=== PATIENT | female | born 1945 | race Caucasian/White ===

== ENCOUNTER → 2016-03-28 | Emergency (ER) | payer MEDICARE, BC ==
[~2016-03-28] VITALS: Ht 167.6 cm; Wt 72.5 kg
[~2016-03-28] MED LIST: ACETAMINOPHEN 325 MG TAB PO ONE; ASPI-664 PO; BENZ2TAB37 PO; CARB200T43 PO; CARI350T29 PO; CLON-379 PO; CLON0.2T5 PO; CLON0.5T4 PO; CLON1TAB3 PO; DILT120C79 PO; DILTIAZEM 120 MG TAB PO ONE; DILTIAZEM 60 MG TAB PO ONE; DIPHENHYDRAMINE 50 MG CAP PO ONE; DOCU-144 PO; DONE5TAB46 PO; FURO-110 PO; GLYB5TAB3 PO; HYDR-3010 PO; IVERMECTIN 3 MG TAB PO ONE; LEVEM SC; LEVO150T67 PO; LEVOTHYROXINE 150 MCG TAB PO ONE; METF-382 PO; NOVO3I SC; TOLT4CAP13 PO; TRAZ100T15 PO; VENL37.56 PO; VENL75TA2 PO
[2016-03-28 00:52] VITALS: Ht 167.6 cm; Wt 72.5 kg
--- NOTE | 2016-03-28 01:25 | ERA ---
ER Documentation Chief Complaint Date/Time DATE: 03/28/16 TIME: 01:24 Chief Complaint Suicidal ideation HPI The patient is a 70-year-old female, presenting to the ER because of suicidal ideation. She does not have any plan. She complains of insomnia, chronic low back pain, general body aches for the last couple days. She denies auditory, visual hallucination, homicidal ideation. Past medical history: Bipolar disorder, diabetes mellitus, hypertension, hypothyroidism, depression, atrial fibrillation, chronic low back pain Past surgical history: Hysterectomy, appendectomy ROS All systems reviewed and are negative except as per history of present illness. Medications Home Meds Active Scripts Docusate Sodium* (Colace*) 100 Mg Capsule, 100 MG PO BID Y for CONSTIPATION, # 30 CAP Prov:LAWSON NEAL MD 07/06/15 Reported Medications Venlafaxine Hcl* (Effexor*) 37.5 Mg Tablet, 37.5 MG PO BID, TAB 07/06/15 Insulin Detemir* (Levemir*) 100 U/Ml Vial, 75 UNIT SC BID, VIAL 07/06/15 Clonidine Hcl* (Clonidine Hcl*) 0.2 Mg Tablet, 0.2 MG PO Q8, TAB 04/27/14 Metformin Hcl* (Metformin Hcl*) 500 Mg Tablet, 500 MG PO WITH MEALS, TAB 04/27/14 Trazodone Hcl* (Trazodone Hcl*) 100 Mg Tablet, 200 MG PO HS Y for INSOMNIA, TAB 04/27/14 Aspirin* (Aspirin* EC) 81 Mg Tablet.dr, 81 MG PO DAILY, TAB 04/27/14 Levothyroxine Sodium* (Levothyroxine Sodium*) 150 Mcg Tablet, 150 MCG PO AC BREAKFAST, TAB 04/27/14 Furosemide* (Lasix*) 20 Mg Tablet, 20 MG PO DAILY Y for EDEMA, TAB 04/27/14 Clonazepam* (Clonazepam*) 1 Mg Tablet, 1 MG PO QHS, TAB 04/27/14 Clonazepam* (Clonazepam*) 0.5 Mg Tablet, 0.5 MG PO QAM, TAB 04/27/14 Carbamazepine* (Carbamazepine* XR) 200 Mg Tab.er.12h, 400 MG PO Q12, TAB.SA 04/27/14 Allergies Allergies: Coded Allergies: No Known Allergies (Verified Allergy, Mild, 12/02/15) PMhx/Soc History of Surgery: Yes (HYSTERECTOMY, APPENDECTOMY) Anesthesia Reaction: No Hx Neurological Disorder: No Hx Respiratory Disorders: No Hx Cardiac Disorders: Yes (pacemaker) Hx Psychiatric Problems: Yes (depression, bipolar) Hx Miscellaneous Medical Probl: Yes (OA, DM, DEPRESSION, BIPOLAR) Hx Alcohol Use: No Hx Substance Use: No Hx Tobacco Use: Yes Physical Exam Vitals Vital Signs Date Time Temp Pulse Resp B/P Pulse Ox O2 Delivery O2 Flow Rate FiO2 03/28/16 03:26 66 20 141/74 100 Room Air 03/28/16 02:19 98.5 78 20 124/64 Room Air 03/28/16 00:52 98.9 69 18 148/84 97 Physical Exam Const: No acute distress. Head: Atraumatic. Eyes: Normal Conjunctiva. ENT: Normal External Ears, Nose and Mouth. Neck: Full range of motion. No meningismus. Resp: Clear to auscultation bilaterally. Cardio: Regular rate and rhythm, no murmurs. Abd: Soft, non distended, normal bowel sounds, non tender. Skin: Multiple excoriation throughout the body, no vesicle, no petechia no pustules Back: No midline or flank tenderness. Ext: No cyanosis, or edema. Neur: Awake and alert. No focal deficit Psych: Normal Mood and Affect. Result Diagram: 03/28/16 02003/28/16 0200 Results 24 hrs Laboratory Tests Test 03/28/16 02:00 03/28/16 02:30 Acetaminophen Level < 10.0ug/ml Alanine Aminotransferase (ALT/SGPT) 28IU/L Albumin 4.1g/dl Albumin/Globulin Ratio 1.36 Alkaline Phosphatase 84IU/L Anion Gap 17 Aspartate Amino Transf (AST/SGOT) 30IU/L Basophils # 0.010^3/ul Basophils % 0.2% Blood Morphology Comment Blood Urea Nitrogen 23mg/dl Calcium Level 9.6mg/dl Carbon Dioxide Level 30mmol/L Chloride Level 97mmol/L Creatinine 0.84mg/dl Direct Bilirubin 0.00mg/dl Eosinophils # 0.510^3/ul Eosinophils % 8.8% Ethyl Alcohol Level < 10.0mg/dl Globulin 3.00g/dl Glucose Level 59mg/dl Hematocrit 40.3% Hemoglobin 13.3g/dl Indirect Bilirubin 0.1mg/dl Lymphocytes # 1.010^3/ul Lymphocytes % 16.5% Mean Corpuscular Hemoglobin 30.5pg Mean Corpuscular Hemoglobin Concent 33.1g/dl Mean Corpuscular Volume 92.2fl Mean Platelet Volume 8.0fl Monocytes # 0.410^3/ul Monocytes % 6.2% Neutrophils # 4.010^3/ul Neutrophils % 68.3% Nucleated Red Blood Cells # 0.010^3/ul Nucleated Red Blood Cells % 0.0/100WBC Platelet Count 01563^3/UL Potassium Level 4.3mmol/L Red Blood Count 4.3710^6/ul Red Cell Distribution Width 14.6% Salicylates Level < 1.0mg/dl Sodium Level 140mmol/L Total Bilirubin 0.1mg/dl Total Protein 7.1g/dl White Blood Count 5.810^3/ul Urine Amphetamines Screen Negative Urine Bacteria FEW Urine Barbiturates Negative Urine Benzodiazepines Screen Negative Urine Bilirubin 1+ Urine Cannabinoids Negative Urine Clarity SL HAZY Urine Cocaine Screen Negative Urine Color YELLOW Urine Glucose NEGATIVE% Urine Hemoglobin NEGATIVE Urine Ictotest NEGATIVE Urine Ketones TRACE Urine Leukocyte Esterase 1+ Urine Microscopic RBC 2-5/HPF Urine Microscopic WBC 5-10/HPF Urine Nitrite NEGATIVE Urine Opiates Screen Negative Urine Specific [place] 1.015 Urine Squamous Epithelial Cells MODERATE Urine Total Protein 1+ Urine Urobilinogen 1.0 E.U./dL Urine pH 7.0 Current Medications Medications (Trade) Dose Ordered Sig/[place] Route PRN Reason Start Time Stop Time Status Last Admin Dose Admin Ivermectin (Stromectol) 14 mg ONCE ONCE PO 03/28/16 03:30 03/28/16 03:31 DC 03/28/16 04:08 Diphenhydramine HCl (Benadryl) 50 mg ONCE ONCE PO 03/28/16 04:30 03/28/16 04:31 Procedures/[facility] The patient is a 70-year-old female, presenting with acute suicidal ideation, probable acute scabies. She was treated with Ivermectin po for scabies and Benadryl p.o. for pruritus with good response. The differential diagnoses considered include but are not limited to psychosis, decompensated psychiatric illness, cellulitis, anxiety disorder, panic disorder Departure Diagnosis: Primary Impression: Suicidal ideation Additional Impression: Scabies Condition: Stable Comments Consultation: The patient was evaluated by telepsychiatrist who put her on 5150 hold TAIWO AGRAWAL MD Mar 28, 2016 01:25
[2016-03-28 02:24] LABS: BASOPHILS % 0.2 % (0.0-2.0); EOSINOPHILS # 0.5 10^3/ul (0.0-0.5); EOSINOPHILS % 8.8 % (0.0-7.0); HEMATOCRIT 40.3 % (37.0-47.0); HEMOGLOBIN 13.3 g/dl (12.0-16.0); LYMPHOCYTES % 16.5 % (15.0-51.0); MEAN CORPUSCULAR HEMOGLOBIN 30.5 pg (29.0-33.0); MEAN CORPUSCULAR HGB CONC 33.1 g/dl (32.0-37.0); MEAN CORPUSCULAR VOLUME 92.2 fl (82.0-101.0); MONOCYTE # 0.4 10^3/ul (0.3-0.9); MONOCYTES % 6.2 % (0.0-11.0); NEUTROPHILS % 68.3 % (39.0-77.0); PLATELET COUNT 232 10^3/UL (140-440); RED BLOOD COUNT 4.37 10^6/ul (4.20-5.40); RED CELL DISTRIBUTION WIDTH 14.6 % (11.5-14.5); UNCORRECTED WBC 5.8 10^3/ul (4.8-10.8); WHITE BLOOD COUNT 5.8 10^3/ul (4.8-10.8)
[2016-03-28 02:31] LABS: CONDITION 1
[2016-03-28 02:32] LABS: LH ANALYZER COMMENTS 1
[2016-03-28 02:40] LABS: ALBUMIN 4.1 g/dl (3.3-4.9); CHLORIDE 97 mmol/L (97-110); SODIUM 140 mmol/L (135-144)
[2016-03-28 02:41] LABS: POTASSIUM 4.3 mmol/L (3.5-5.1)
[2016-03-28 02:42] LABS: BILIRUBIN,INDIRECT 0.1 mg/dl (0-1.1); BILIRUBIN,TOTAL 0.1 mg/dl (0.2-1.3); CREATININE 0.84 mg/dl (0.44-1.00)
[2016-03-28 02:43] LABS: ALANINE AMINOTRANSFERASE 28 IU/L (13-69); ALBUMIN/GLOBULIN RATIO 1.36; ALKALINE PHOSPHATASE 84 IU/L (42-121); ANION GAP 17 (8-16); ASPARTATE AMINO TRANSFERASE 30 IU/L (15-46); BLOOD UREA NITROGEN 23 mg/dl (7-20); CALCIUM 9.6 mg/dl (8.4-10.2); CARBON DIOXIDE 30 mmol/L (21-31); GLUCOSE 59 mg/dl (70-220); TOTAL PROTEIN 7.1 g/dl (6.1-8.1)
[2016-03-28 02:47] LABS: ACETAMINOPHEN < 10.0 ug/ml (10.0-30.0); ETHANOL < 10.0 mg/dl; SALICYLATE < 1.0 mg/dl (5.0-30.0)
[2016-03-28 03:32] LABS: ADD UMIC YES; URINE BILIRUBIN (Dip) 1+ (NEGATIVE); URINE BLOOD (Dip) NEGATIVE (NEGATIVE); URINE COLOR YELLOW (YELLOW); URINE GLUCOSE (Dip) NEGATIVE (NEGATIVE); URINE KETONES (Dip) TRACE (NEGATIVE); URINE LEUKOCYTE ESTERASE (Dip) 1+ (NEGATIVE); URINE NITRITE (Dip) NEGATIVE (NEGATIVE); URINE TOTAL PROTEIN (Dip) 1+ (NEGATIVE); URINE UROBILINOGEN (Dip) 1.0 E.U./dL (0.1-1.0)
[2016-03-28 03:49] LABS: ICTOTEST NEGATIVE (NEGATIVE)
[2016-03-28 03:50] LABS: BACTERIA,URINE FEW; SQUAMOUS EPITHELIAL CELL,UR MODERATE
--- NOTE | 2016-03-28 04:13 | PSY ---
Date/Time of Note Date/Time of Note DATE: 03/28/16 TIME: 04:06 Psychiatric Subjective Eval Subjective Evaluation Patient location: emergency Chief Complaint: SI,insomnia,hx bipolar,scabies,chronic back pain Reason for consult: Mental history History of present illness patient is a 70 yo female with PPH of bipolar do who lives with her daughter who was brought in to the ER by her daughter because she has been feeling suicidal. Patient states that she wants to because she has no money and her children needs to take care of her and also because of chronic pain. she states that she has been feeling depressed, hopeless and helpless for weeks but she also seem manic, with being hyperverbal, irritable, labile, paranoid at times, states that she has not slept for few days but denies any HI or hallucination. she is disorganized and confused at times. Past psychiatric history past suicidal attempt no Hospitalization: yes Family History Problems Family History Problems: (1) Family history of cardiac disorder Relations: 33 FATHER Medical history Problems Medical Problems: (1) Abdominal pain Status: Acute (2) Caffeine adverse reaction Status: Acute (3) Constipation Status: Acute (4) Diabetes mellitus type 2 in obese Status: Acute (5) Hematoma of left lower extremity Status: Acute (6) Hernia Status: Acute (7) Hyperglycemia Status: Acute (8) Hypertension Status: Acute (9) Hypoglycemia Status: Acute (10) Severe anemia Status: Acute (11) Sinus tachycardia Status: Acute (12) Ventral hernia Status: Acute (13) Warfarin-induced coagulopathy Status: Acute Allergies: Coded Allergies: No Known Allergies (Verified Allergy, Mild, 12/02/15) Substance Abuse Substance use: No known substance abuse Social History Marital status: single Level of education: High school; 2 year college DPA/Conservatorship: No Occupation/Care Home: Retired since 1995 Psychiatric Objective Eval Review of Systems: Review of Systems: Not Applicable Physical Examination: Physical Examination: Applicable Sleep: Insomnia Appetite: Decreased Energy: Decreased Interest: Decreased Mental Status Examination: Appearance: Disheveled Eye Contact: Fair Psychomotor Activity: Normal Behavior: Cooperative Speech: Pressured AFFECT: Libile Mood: Depressed, Anxious Though Process: Loose Thought Content: Delusions Suicidal: Yes Homicidal: No On 72 hour hold: No Orientation: x3 Cognition: Drowsy Insight: Impared Judgement: Impared Attention Span: Distractible Laboratory Results Laboratory Tests Test 03/28/16 02:00 03/28/16 02:30 Acetaminophen Level < 10.0ug/ml Alanine Aminotransferase (ALT/SGPT) 28IU/L Albumin 4.1g/dl Albumin/Globulin Ratio 1.36 Alkaline Phosphatase 84IU/L Anion Gap 17 Aspartate Amino Transf (AST/SGOT) 30IU/L Basophils # 0.010^3/ul Basophils % 0.2% Blood Morphology Comment Blood Urea Nitrogen 23mg/dl Calcium Level 9.6mg/dl Carbon Dioxide Level 30mmol/L Chloride Level 97mmol/L Creatinine 0.84mg/dl Direct Bilirubin 0.00mg/dl Eosinophils # 0.510^3/ul Eosinophils % 8.8% Ethyl Alcohol Level < 10.0mg/dl Globulin 3.00g/dl Glucose Level 59mg/dl Hematocrit 40.3% Hemoglobin 13.3g/dl Indirect Bilirubin 0.1mg/dl Lymphocytes # 1.010^3/ul Lymphocytes % 16.5% Mean Corpuscular Hemoglobin 30.5pg Mean Corpuscular Hemoglobin Concent 33.1g/dl Mean Corpuscular Volume 92.2fl Mean Platelet Volume 8.0fl Monocytes # 0.410^3/ul Monocytes % 6.2% Neutrophils # 4.010^3/ul Neutrophils % 68.3% Nucleated Red Blood Cells # 0.010^3/ul Nucleated Red Blood Cells % 0.0/100WBC Platelet Count 29902^3/UL Potassium Level 4.3mmol/L Red Blood Count 4.3710^6/ul Red Cell Distribution Width 14.6% Salicylates Level < 1.0mg/dl Sodium Level 140mmol/L Total Bilirubin 0.1mg/dl Total Protein 7.1g/dl White Blood Count 5.810^3/ul Urine Bacteria FEW Urine Bilirubin 1+ Urine Clarity SL HAZY Urine Color YELLOW Urine Glucose NEGATIVE% Urine Hemoglobin NEGATIVE Urine Ictotest NEGATIVE Urine Ketones TRACE Urine Leukocyte Esterase 1+ Urine Microscopic RBC 2-5/HPF Urine Microscopic WBC 5-10/HPF Urine Nitrite NEGATIVE Urine Specific [place] 1.015 Urine Squamous Epithelial Cells MODERATE Urine Total Protein 1+ Urine Urobilinogen 1.0 E.U./dL Urine pH 7.0 Assessment and Plan Assessment/Diagnosis [place] I: bipolar do mixte episode severe [place] II: deferred [place] III: as per record [place] IV: poor social support [place] V: gaf 20 Recommendation/Plan Medication Management zyprexa 2.5 mg po bid and discontinue effexor at bedtime Psychotherapy Please admit patient on unvoluntary status due to Danger to self, In my opinion, patient currently MEETS criterion for inpatient care and CANNOT be safely treated at a lower level of care today as evidenced by the following risk factors: Current and Recent Suicidal Ideation Intense feelings of hopelessness and lack of future orientation. Significant recent DETERIORATION in function, behavior and thought processes Patient has failed outpatient and requires further inpatient assessment Medication changes require observation unavailable at a lower level of care. [id number] Recommendation: DORY Gotti MD Mar 28, 2016 04:13
[2016-03-28 04:23] LABS: BARBITURATES Negative (NEGATIVE); BENZODIAZEPINES Negative (NEGATIVE); CANNABINOIDS Negative (NEGATIVE); COCAINE Negative (NEGATIVE)
[2016-03-28 04:24] LABS: OPIATES Negative (NEGATIVE)
[2016-03-28 15:00] VITALS: BP 158/87; PULSE 82; RESP 20; TEMP 98.7
== END | disposition other institution (70) ==
LOC: E/R 00:30
DX: B86 Scabies (principal); R45.851 Suicidal ideations; I10 Essential (primary) hypertension; E03.9 Hypothyroidism, unspecified; E11.9 Type 2 diabetes mellitus without complications; Z79.4 Long term (current) use of insulin; Z79.84 Long term (current) use of oral hypoglycemic drugs; Z79.82 Long term (current) use of aspirin; Z87.891 Personal history of nicotine dependence; Z95.0 Presence of cardiac pacemaker
CPT/HCPCS: 80053; 80306; 80307; 81001; 81003; 82962; 85025; 99285

== ENCOUNTER 2016-06-11 18:30 | Emergency (ER) | payer MEDICARE, BC ==
[~2016-06-11] VITALS: Ht 162.6 cm; Wt 77.5 kg
[~2016-06-11 18:30] MED LIST changes: -ACETAMINOPHEN 325 MG TAB PO ONE; -ASPI-664 PO; -CLON0.2T5 PO; -CLON0.5T4 PO; -DILTIAZEM 120 MG TAB PO ONE; -DILTIAZEM 60 MG TAB PO ONE; -DIPHENHYDRAMINE 50 MG CAP PO ONE; -DOCU-144 PO; -FURO-110 PO; -IVERMECTIN 3 MG TAB PO ONE; -LEVOTHYROXINE 150 MCG TAB PO ONE; -METF-382 PO; -TRAZ100T15 PO; -VENL37.56 PO
[2016-06-11 19:03] VITALS: Ht 162.6 cm; Wt 77.5 kg
--- NOTE | 2016-06-11 22:51 | ERD ---
ER Documentation Chief Complaint Date/Time DATE: 06/11/16 TIME: 22:36 Chief Complaint blister on right foot noticed since yesterday (ABDIRIZAK GUTIERREZ) HPI This 70-year-old female brought into emergency department today by grandson with reports of right heel blister noticed yesterday. Patient reports pain, she is quiet, appears confused, grandson reports recent diagnosis of dementia. Patient states that she is a diabetic, reports that she does not test her blood sugar. Patient has pacemaker. Recent history of COPD and CHF. Patient is afebrile at this time, systolic blood pressure is 178/78, respirations are 20. Pulse is 70. Patient does not appear septic. (ABDIRIZAK GUTIERREZ) ROS All systems reviewed and are negative except as per history of present illness. (ABDIRIZAK GUTIERREZ) Medications Home Meds Reported Medications Venlafaxine Hcl* (Effexor XR*) 75 Mg Tab.er.24, 75 MG PO DAILY, TAB.SA 03/28/16 Donepezil* (Aricept*) 5 Mg Tablet, 5 MG PO DAILY, TAB 03/28/16 Insulin Aspart* (Novolog Insulin Pen*) 100 Unit/Ml Soln, 0 SC WITH MEALS BEDTIME , EA 03/28/16 Tolterodine Tartrate* (Tolterodine Tartrate* ER) 4 Mg Cap.er.24h, 4 MG PO DAILY , #30 CAP 03/28/16 Insulin Detemir (Levemir) 100 Unit/1 Ml Vial, 12 UNIT SC QAM, VIAL 03/28/16 Carisoprodol* (Carisoprodol*) 350 Mg Tablet, 350 MG PO Q8 Y for MUSCLE SPASMS, TAB 03/28/16 Benztropine Mesylate* (Benztropine Mesylate*) 2 Mg Tablet, 2 MG PO BID, TAB 03/28/16 Clonidine Hcl* (Clonidine Hcl*) 0.1 Mg Tab, 0.1 MG PO Q4H Y for ELEVATED BLOOD PRESSURE, TAB 03/28/16 Hydroxyzine Hcl* (Hydroxyzine Hcl*) 10 Mg Tablet, 10-20 MG PO Q4 Y for ITCHING, #30 TAB 03/28/16 Glyburide* (Glyburide*) 5 Mg Tablet, 5 MG PO BID, #60 TAB 03/28/16 Diltiazem Hcl* (Diltiazem XT) 120 Mg Capsule.sa, 120 MG PO DAILY, #30 CAP 03/28/16 Levothyroxine Sodium* (Levothyroxine Sodium*) 150 Mcg Tablet, 150 MCG PO AC BREAKFAST, TAB 04/27/14 Clonazepam* (Clonazepam*) 1 Mg Tablet, 1 MG PO QHS, TAB 04/27/14 Carbamazepine* (Carbamazepine* XR) 200 Mg Tab.er.12h, 400 MG PO Q12, TAB.SA 04/27/14 Allergies Allergies: Coded Allergies: No Known Allergies (Verified Allergy, Mild, 03/28/16) PMhx/Soc History of Surgery: Yes (HYSTERECTOMY, APPENDECTOMY) Anesthesia Reaction: No Hx Neurological Disorder: No Hx Respiratory Disorders: No Hx Cardiac Disorders: Yes (pacemaker) Hx Psychiatric Problems: Yes (depression, bipolar, depression) Hx Miscellaneous Medical Probl: Yes (dm type 2, hypothyroidism) Hx Alcohol Use: No Hx Substance Use: No Hx Tobacco Use: No Smoking Status: Former smoker (ABDIRIZAK GUTIERREZ) Physical Exam Vitals Vital Signs Date Time Temp Pulse Resp B/P Pulse Ox O2 Delivery O2 Flow Rate FiO2 06/12/16 00:09 73 16 189/94 100 Room Air 06/11/16 19:03 97.8 70 20 178/78 97 (CHELSIEI,KOROSH DO) Vitals Vitals stable, triage notes reviewed (ABDIRIZAK GUTIERREZ) Physical Exam Const: No acute distress Head: Atraumatic Eyes: Normal Conjunctiva PERRLA, EOMI ENT: Normal External Ears, Nose and Mouth. Mucous membranes moist Neck: Resp: Chest rises and falls symmetrically, diminished posterior bases Cardio: Regular rate and rhythm, Abd: Soft, non tender, non distended. Normal bowel sounds Skin: Right heel decubitus ulcer, soft, spongy, black, Back: Ext: Lower Extremity - bilateral: Skin: 3 cm x 2.5 cm black spongy pressure ulcer noted on right heel, bilateral lower extremities are edematous, skin is thickened, shriveled and dry. Compartments: Soft Motor: Decreased motor function, patient slow to respond, difficulty moving toes and flex and extending ankles and knees. Sensation: Decreased sensation to bilateral feet and heels. Bones: Nontender pelvis/knee/proximal tibia/ malleoli/foot Joints: No effusion or laxity Pulses/Perfusion: Right DP/PT not palpable, feel it is cold, +2 pitting edema, left DP/PT trace. Capillary refill sluggish 2+ DP, + 2 pitting edema Neur: Neuro: M/S: Alert Face: EOMI, face and pharynx with normal sensation and function Motor: Normal strength throughout-suspected baseline Sensation: Decreased sensation suspected baseline, suspected diabetic neuropathy Speech: Slow Cerebel: Right hand tremor noted Difficulty ambulating needs assist Psych: Normal Mood and Affect (BRENDA,ABDIRIZAK) Result Diagram: 06/11/16225606/11/162256 Results 24 hrs Laboratory Tests Test 06/11/16 20:37 06/11/16 22:57 Bedside Glucose 258mg/dL White Blood Count 9.810^3/ul Red Blood Count 4.2610^6/ul Hemoglobin 13.1g/dl Hematocrit 39.7% Mean Corpuscular Volume 93.2fl Mean Corpuscular Hemoglobin 30.8pg Mean Corpuscular Hemoglobin Concent 33.0g/dl Red Cell Distribution Width 13.4% Platelet Count 11699^3/UL Mean Platelet Volume 9.2fl Neutrophils % 77.8% Lymphocytes % 12.1% Monocytes % 7.0% Eosinophils % 2.3% Basophils % 0.5% Nucleated Red Blood Cells % 0.0/100WBC Neutrophils # 7.610^3/ul Lymphocytes # 1.210^3/ul Monocytes # 0.710^3/ul Eosinophils # 0.210^3/ul Basophils # 0.110^3/ul Nucleated Red Blood Cells # 0.010^3/ul Prothrombin Time 13.1Sec Prothrombin Time Ratio 1.0 INR International Normalized Ratio 0.99 Activated Partial Thromboplast Time 28.6Sec Sodium Level 129mmol/L Potassium Level 3.5mmol/L Chloride Level 85mmol/L Carbon Dioxide Level 29mmol/L Anion Gap 19 Blood Urea Nitrogen 19mg/dl Creatinine 0.71mg/dl Glucose Level 280mg/dl Lactic Acid Level 1.3mmol/L Calcium Level 9.4mg/dl Total Bilirubin 0.4mg/dl Direct Bilirubin 0.00mg/dl Indirect Bilirubin 0.4mg/dl Aspartate Amino Transf (AST/SGOT) 23IU/L Alanine Aminotransferase (ALT/SGPT) 32IU/L Alkaline Phosphatase 165IU/L Troponin I < 0.012ng/ml Total Protein 7.4g/dl Albumin 4.1g/dl Globulin 3.30g/dl Albumin/Globulin Ratio 1.24 (MARIA FERNANDA FONG DO) Results 24 hrs Interpretation text CBC shows no evidence of hemorrhage or infection Chemistry shows no evidence of renal insufficiency, hyponatremia noted at 129. Liver function tests shows no evidence of acute biliary or hepatic dysfunction Lipase shows no evidence of acute pancreatitis Cardiac biomarkers show no evidence of acute myocardial injury or coronary ischemia (ABDIRIZAK GUTIERREZ) Procedures/MDM PROCEDURE: US Lower extremity Venous. CLINICAL INDICATION: Right lower extremity swelling TECHNIQUE: Multiple sonographic images of the right lower extremity deep venous system was obtained utilizing grayscale, color-flow, compressive sonography and doppler imaging with augmentation. The images were reviewed on a PACS workstation. COMPARISON: 11/01/2012 FINDINGS: There is normal compressibility and flow within the right common femoral, femoral, popliteal veins. Considerable tissue edema is seen in the right calf. Normal color flow Doppler seen in the right posterior tibial vein. IMPRESSION: No sonographic evidence for right lower extremity deep venous thrombosis. Considerable soft tissue edema in right calf. .Torito Lindsay MD, Date Time Electronically viewed and signed by .Torito Lindsay MD, MD on 06/12/2016 00:09 PROCEDURE: XR Heel. CLINICAL INDICATION: Pain, osteomyelitis. TECHNIQUE: Two views of the left calcaneus. COMPARISON: None available. FINDINGS: No fracture or dislocation is identified. No cortical lucency or periosteal reaction is identified to suggest osteomyelitis. No significant degenerative changes are seen. There is no soft tissue gas. IMPRESSION: 1. No evidence of osteomyelitis. 2. No soft tissue gas. .Geovany Smith MD, Date Time Electronically viewed and signed by .Geovany Smith MD, on 06/12/2016 00:15 EKG: Rate/Rhythm: Normal Sinus Rhythm QRS, ST, T-waves: ST and T-wave abnormality/prolonged QT Impression: Abnormal ECG-pacemaker spikes noted Reading by EKG: Rate/Rhythm: Normal Sinus Rhythm QRS, ST, T-waves: ST and T-wave abnormality/prolonged QT Impression: Abnormal ECG-pacemaker spikes noted Reading by This 70-year-old female presents to emergency department today for evaluation of right heel pressure ulcer, ulcers black, spongy. Patient is diabetic, with cardiovascular disease, pacemaker implantation, COPD and dementia. Poor historian, grandson in exam room concerned. Grandson reports that he has been away out of the country [place] 4 months and that his grandmother has changed dramatically. Patient has flat affect, slow mentation. Right hand tremor, differential diagnosis includes but not limited to cellulitis, osteomyelitis, deep vein thrombosis, DKA, AMI. ECG shows normal sinus rhythm at ventricular rate of [address]-T wave abnormality and a prolonged QT. ECG repeated in 20 minutes without change-pacemaker spikes noted patient has no chest pain, shortness of breath, or palpitations. Venous ultrasound to rule out DVT shows there is normal compression and flow of right common femoral and femoral popliteal veins, considerable tissue edema is seen in right calf normal color flow Doppler seen in right posterior tibial vein. No sonographic evidence for right lower extremity DVT, Right heel x-ray findings include no fracture or dislocation is identified. No cortical lunacy or periosteal region is identified to suggest osteomyelitis. No significant degenerative changes are seen. There is is no soft tissue gas. Impression reads no evidence of osteomyelitis. No soft tissue gas. Hyponatremia at 129. Case discussed with supervising physician Dr. Fong, discussed the possibility of admission. Dr. Alejandra talked to on-call primary care physician Dr. Ildefonso agarwal to discharge home no change in medication follow- up in office this week. Patient will be referred to wound clinic. I feel the patient is stable for discharge at this time. I have discussed results, examination findings, the treatment plan with the patient and family present prior to discharge. Indications for emergent reevaluation, side effects of medication were also discussed. All questions were answered. Patient verbalizes understanding and agrees with plan of care. (ABDIRIZAK GUTIERREZ) Departure Patient Instructions: Decubitus Ulcer, Hyponatremia Referrals: [facility] Additional Instructions: Thank you for for coming to [facility] for your care today. Please ask your nurse or provider if you have questions about your care today and do not leave until all your questions have been answered. Please use any medications given as directed and follow-up with your doctor (or the doctor you were referred to) in the next 2-3 days. If you do not have a primary care doctor you may follow up at the [facility] (listed below). You may also use motrin and tylenol as needed for fever and/or pain unless instructed otherwise by your provider or nurse. Indications for more urgent follow-up have been discussed, but you may return to the Emergency Department at ANY time for any worrisome or worsening symptoms. If you have abdominal pain, please know that no test or exam you received is perfect and you should follow up within 8 hours for continued pain. If you had any imaging studies today, such as an X-Ray or CT Scan, these studies will be reviewed later by a radiologist. You will be called if there are important findings that were not identified today, so make sure the contact information you provided at registration is correct. If you received any narcotic pain control medicine today, such as Vicodin, Morphine or Dilaudid, your coordination and judgment may be affected for a number of hours. Please do not drive or operate heavy machinery, and you may want someone to assist you at home. If you were given a prescription for narcotic medication, be aware that it is very addictive- use sparingly and only if necessary. Comments I have reviewed this case with our physician blacksmith assistant. I have contacted this patient's physician calculation reviewer, Dr. Fregoso. I discussed this patient's hyponatremia with her. She states that this patient can follow-up as an outpatient for lab redraw this week. (MARIA FERNANDA FONG DO) ABDIRIZAK GUTIERREZ Jun 11, 2016 22:47 MARIA FERNANDA FONG DO Jun 12, 2016 03:32
[2016-06-11 23:11] LABS: ADD SCAN DIFF NO
[2016-06-11 23:15] LABS: BASOPHIL # 0.1 10^3/ul (0.0-0.1); BASOPHILS % 0.5 % (0.0-2.0); EOSINOPHILS # 0.2 10^3/ul (0.0-0.5); EOSINOPHILS % 2.3 % (0.0-7.0); HEMATOCRIT 39.7 % (37.0-47.0); HEMOGLOBIN 13.1 g/dl (12.0-16.0); LYMPHOCYTES # 1.2 10^3/ul (0.8-2.9); LYMPHOCYTES % 12.1 % (15.0-51.0); MEAN CORPUSCULAR HEMOGLOBIN 30.8 pg (29.0-33.0); MEAN CORPUSCULAR VOLUME 93.2 fl (82.0-101.0); MEAN PLATELET VOLUME 9.2 fl (7.4-10.4); MONOCYTE # 0.7 10^3/ul (0.3-0.9); NEUTROPHIL # 7.6 10^3/ul (1.6-7.5); NEUTROPHILS % 77.8 % (39.0-77.0); PLATELET COUNT 464 10^3/UL (140-415); RED BLOOD COUNT 4.26 10^6/ul (4.20-5.40); RED CELL DISTRIBUTION WIDTH 13.4 % (11.5-14.5); WHITE BLOOD COUNT 9.8 10^3/ul (4.8-10.8)
[2016-06-11 23:26] LABS: INR 0.99; PARTIAL THROMBOPLASTIN TIME 28.6 Sec (25.0-35.0); PROTIME 13.1 Sec (12.2-14.2)
[2016-06-11 23:29] LABS: ALBUMIN 4.1 g/dl (3.3-4.9); CHLORIDE 85 mmol/L (97-110); POTASSIUM 3.5 mmol/L (3.5-5.1); SODIUM 129 mmol/L (135-144)
[2016-06-11 23:31] LABS: CREATININE 0.71 mg/dl (0.44-1.00)
[2016-06-11 23:32] LABS: ALANINE AMINOTRANSFERASE 32 IU/L (13-69); ALBUMIN/GLOBULIN RATIO 1.24; ALKALINE PHOSPHATASE 165 IU/L (42-121); ANION GAP 19 (8-16); ASPARTATE AMINO TRANSFERASE 23 IU/L (15-46); BILIRUBIN,INDIRECT 0.4 mg/dl (0-1.1); BILIRUBIN,TOTAL 0.4 mg/dl (0.2-1.3); BLOOD UREA NITROGEN 19 mg/dl (7-20); CARBON DIOXIDE 29 mmol/L (21-31); GLUCOSE 280 mg/dl (70-220); TOTAL PROTEIN 7.4 g/dl (6.1-8.1)
[2016-06-11 23:33] LABS: CALCIUM 9.4 mg/dl (8.4-10.2)
[2016-06-11 23:47] LABS: TROPONIN-I < 0.012 ng/ml (0.00-0.12)
[2016-06-12 00:09] VITALS: BP 189/94; PULSE 73; RESP 16
--- NOTE | 2016-06-12 00:09 | RADRPT ---
PROCEDURE: US Lower extremity Venous. CLINICAL INDICATION: Right lower extremity swelling TECHNIQUE: Multiple sonographic images of the right lower extremity deep venous system was obtaine d utilizing grayscale, color-flow, compressive sonography and doppler imaging with augmentation. Th e images were reviewed on a PACS workstation. COMPARISON: 11/01/2012 FINDINGS: There is normal compressibility and flow within the right common femoral, femoral, popliteal veins. Considerable tissue edema is seen in the right calf. Normal color flow Doppler seen in the right p osterior tibial vein. IMPRESSION: No sonographic evidence for right lower extremity deep venous thrombosis. Considerable soft tissue e kinjal in right calf. RPTAT: HJES .Torito Lindsay MD, MD Date Time Electronically viewed and signed by .Torito Lindsay MD, on 06/12/2016 00:09 .S/
--- NOTE | 2016-06-12 00:16 | RADRPT ---
PROCEDURE: XR Heel. CLINICAL INDICATION: Pain, osteomyelitis. TECHNIQUE: Two views of the left calcaneus. COMPARISON: None available. FINDINGS: No fracture or dislocation is identified. No cortical lucency or periosteal reaction is identified t o suggest osteomyelitis. No significant degenerative changes are seen. There is no soft tissue gas . IMPRESSION: 1. No evidence of osteomyelitis. 2. No soft tissue gas. RPTAT: HTAR .Geovany Smith MD, MD Date Time Electronically viewed and signed by .Geovany Smith MD, MD on 06/12/2016 00:15 .R/
== END 2016-06-12 03:57 | disposition home or self-care (01) ==
LOC: FTE 18:30
DX: L89.619 Pressure ulcer of right heel, unspecified stage (principal); E87.1 Hypo-osmolality and hyponatremia; E11.9 Type 2 diabetes mellitus without complications; E03.9 Hypothyroidism, unspecified; I50.9 Heart failure, unspecified; J44.9 Chronic obstructive pulmonary disease, unspecified; Z87.891 Personal history of nicotine dependence; Z95.0 Presence of cardiac pacemaker; Z79.4 Long term (current) use of insulin; Z79.84 Long term (current) use of oral hypoglycemic drugs
CPT/HCPCS: 36415; 73650; 80053; 82962; 83605; 84484; 85025; 85610; 85730; 87040; 93005; 93971

== ENCOUNTER 2016-09-13 02:13 | Emergency (ER) | payer MEDICARE, BC ==
[~2016-09-13] VITALS: Ht 167.6 cm; Wt 80.0 kg
[2016-09-13 02:44] VITALS: Ht 167.6 cm; Wt 80.0 kg
[2016-09-13] MEDS ORDERED: SOD CHLORIDE 0.9% 1,000 ML IV STA (03:08)
[2016-09-13] MEDS ORDERED: LACTATED RINGER'S 1,000 ML IV STA (03:08)
[2016-09-13 04:08] LABS: CALCIUM 9.8 mg/dl (8.4-10.2); CREATININE 0.88 mg/dl (0.44-1.00); MAGNESIUM 1.9 mg/dl (1.7-2.5); POTASSIUM 3.8 mmol/L (3.5-5.1)
[2016-09-13 04:19] LABS: TROPONIN-I 0.015 ng/ml (0.00-0.12)
[2016-09-13 04:26] LABS: BASOPHILS % 0.3 % (0.0-2.0); EOSINOPHILS # 0.3 10^3/ul (0.0-0.5); EOSINOPHILS % 5.3 % (0.0-7.0); HEMATOCRIT 40.6 % (37.0-47.0); HEMOGLOBIN 14.5 g/dl (12.0-16.0); LYMPHOCYTES % 16.9 % (15.0-51.0); MEAN CORPUSCULAR HEMOGLOBIN 32.7 pg (29.0-33.0); MEAN CORPUSCULAR HGB CONC 35.7 g/dl (32.0-37.0); MEAN CORPUSCULAR VOLUME 91.6 fl (82.0-101.0); MEAN PLATELET VOLUME 10.7 fl (7.4-10.4); MONOCYTE # 0.4 10^3/ul (0.3-0.9); MONOCYTES % 6.4 % (0.0-11.0); NEUTROPHIL # 4.2 10^3/ul (1.6-7.5); NEUTROPHILS % 70.8 % (39.0-77.0); PLATELET COUNT 208 10^3/UL (140-415); RED BLOOD COUNT 4.43 10^6/ul (4.20-5.40); RED CELL DISTRIBUTION WIDTH 12.5 % (11.5-14.5); WHITE BLOOD COUNT 5.9 10^3/ul (4.8-10.8)
--- NOTE | 2016-09-13 04:45 | RADRPT ---
PROCEDURE: CHEST - 1 VIEW CLINICAL INDICATION: 70-year-old female with chest pain and hyperglycemia. TECHNIQUE: A single frontal AP upright portable view of the chest was performed. The images were reviewed on a PACS workstation. COMPARISON: Chest x-ray November 27, 2015. FINDINGS: There is a left-sided dual chamber pacemaker. The cardiomediastinal silhouette is prominent but wit hout significant interval change. There is no evidence for an infiltrate. There is no evidence for congestive heart failure. There is no evidence for pneumothorax. The osseous structures are intact. IMPRESSION: 1. Left-sided dual chamber pacemaker. 2. No evidence for active cardiopulmonary disease. .Sterling Carrion MD, Date Time Electronically viewed and signed by .Sterling Carrion MD, on 09/13/2016 04:45 .M/
[2016-09-13] MEDS ORDERED: INSULIN REGULAR 10 ML INJ SC ONE (05:00)
[2016-09-13 05:07] VITALS: TEMP 98.6
[2016-09-13] MEDS ORDERED: METO-429 PO (05:21)
[2016-09-13] MEDS ORDERED: ENAL20TA PO (05:21)
[2016-09-13] MEDS ORDERED: ARIP15TA2 PO (05:21)
[2016-09-13] MEDS ORDERED: TRAZ100T15 PO (05:21)
[2016-09-13] MEDS ORDERED: ALBU18HF INHALATION (05:21)
[2016-09-13] MEDS ORDERED: LANT3I SC (05:21)
--- NOTE | 2016-09-13 05:43 | ERA ---
ER Documentation Chief Complaint Date/Time DATE: 09/13/16 TIME: 05:34 Chief Complaint FAMILY CALLED EMS W/ C/O PT NON COMPLIANT AND NEEDS MENTAL EVAL. HPI 70-year-old female with a history of diabetes, hypertension, pacemaker, and dementia brought into the ER by ambulance as the patient has been noncompliant with her medications and per the family, need some mental health evaluation. The patient states that she is here because she was hyperglycemic at home which is why her son-in-law sent her. However after speaking with the family on the phone, it seems that they cannot take care of her anymore and she seems very depressed and will not take care of herself anymore. Patient has no complaints at this time. She denies any dizziness, headache, weakness, chest pain, shortness of breath, dysuria, abdominal pain, nausea, vomiting, fever, or chills. ROS All systems reviewed and are negative except as per history of present illness. Medications Home Meds Reported Medications Insulin Glargine* (Lantus*) 100 Unit/Ml Soln, SC BID, #1 VIAL 09/13/16 Trazodone Hcl* (Desyrel*) 100 Mg Tab, 100 MG PO BID, #60 TAB 09/13/16 Metoprolol Tartrate* (Lopressor*) 50 Mg Tab, 50 MG PO BID, #60 TAB 09/13/16 Aripiprazole* (Abilify*) 15 Mg Tablet, 15 MG PO DAILY, #30 TAB 09/13/16 Albuterol Sulfate* (Ventolin HFA*) 18 Gm Hfa.aer.ad, 2 PUFF INHALATION Q4H, #1 INHALER 09/13/16 Enalapril Maleate* (Enalapril Maleate*) 20 Mg Tablet, 20 MG PO DAILY, TAB 09/13/16 Venlafaxine Hcl* (Effexor XR*) 75 Mg Tab.er.24, 75 MG PO DAILY, TAB.SA 03/28/16 Donepezil* (Aricept*) 5 Mg Tablet, 5 MG PO DAILY, TAB 03/28/16 Insulin Aspart* (Novolog Insulin Pen*) 100 Unit/Ml Soln, 0 SC WITH MEALS BEDTIME , EA 03/28/16 Tolterodine Tartrate* (Tolterodine Tartrate* ER) 4 Mg Cap.er.24h, 4 MG PO DAILY , #30 CAP 03/28/16 Insulin Detemir (Levemir) 100 Unit/1 Ml Vial, 12 UNIT SC QAM, VIAL 03/28/16 Carisoprodol* (Carisoprodol*) 350 Mg Tablet, 350 MG PO Q8 Y for MUSCLE SPASMS, TAB 03/28/16 Benztropine Mesylate* (Benztropine Mesylate*) 2 Mg Tablet, 2 MG PO BID, TAB 03/28/16 Clonidine Hcl* (Clonidine Hcl*) 0.1 Mg Tab, 0.1 MG PO Q4H Y for ELEVATED BLOOD PRESSURE, TAB 03/28/16 Hydroxyzine Hcl* (Hydroxyzine Hcl*) 10 Mg Tablet, 10-20 MG PO Q4 Y for ITCHING, #30 TAB 03/28/16 Glyburide* (Glyburide*) 5 Mg Tablet, 5 MG PO BID, #60 TAB 03/28/16 Diltiazem Hcl* (Diltiazem XT) 120 Mg Capsule.sa, 120 MG PO DAILY, #30 CAP 03/28/16 Levothyroxine Sodium* (Levothyroxine Sodium*) 150 Mcg Tablet, 150 MCG PO AC BREAKFAST, TAB 04/27/14 Clonazepam* (Clonazepam*) 1 Mg Tablet, 1 MG PO QHS, TAB 04/27/14 Carbamazepine* (Carbamazepine* XR) 200 Mg Tab.er.12h, 400 MG PO Q12, TAB.SA 04/27/14 Allergies Allergies: Coded Allergies: No Known Allergies (Unverified Allergy, Mild, 09/13/16) PMhx/Soc History of Surgery: Yes (HYSTERECTOMY, APPENDECTOMY) Anesthesia Reaction: No Hx Neurological Disorder: No Hx Respiratory Disorders: No Hx Cardiac Disorders: Yes (pacemaker, HTN) Hx Psychiatric Problems: Yes (depression, bipolar, depression) Hx Miscellaneous Medical Probl: Yes (dm type 2, hypothyroidism) Hx Alcohol Use: No Hx Substance Use: No Hx Tobacco Use: Yes Smoking Status: Current every day smoker FmHx Family History: No diabetes Physical Exam Vitals Vital Signs Date Time Temp Pulse Resp B/P Pulse Ox O2 Delivery O2 Flow Rate FiO2 09/13/16 10:23 61 18 133/73 98 09/13/16 05:07 98.6 66 18 141/76 98 09/13/16 03:41 98.6 66 18 120/77 98 09/13/16 02:44 98.6 59 18 128/80 98 Physical Exam Const: Chronically ill-appearing, no apparent distress Head: Atraumatic Eyes: Normal Conjunctiva ENT: Dry mucous membranes Neck: Full range of motion..~ No meningismus. Resp: Clear to auscultation bilaterally Cardio: Regular rate and rhythm, no murmurs Abd: Soft, non tender, non distended. Normal bowel sounds Skin: No petechiae or rashes Back: No midline or flank tenderness Ext: No cyanosis, or edema Neur: Awake and alert Psych: Depressed mood and Affect, no suicidal or homicidal ideations, no hallucinations Result Diagram: 09/13/16 0320 09/13/16 0320 Results 24 hrs Laboratory Tests Test 09/13/16 02:50 09/13/16 03:20 09/13/16 04:31 09/13/16 06:04 Bedside Glucose 557mg/dL 490mg/dL 380mg/dL White Blood Count 5.910^3/ul Red Blood Count 4.4310^6/ul Hemoglobin 14.5g/dl Hematocrit 40.6% Mean Corpuscular Volume 91.6fl Mean Corpuscular Hemoglobin 32.7pg Mean Corpuscular Hemoglobin Concent 35.7g/dl Red Cell Distribution Width 12.5% Platelet Count 74323^3/UL Mean Platelet Volume 10.7fl Neutrophils % 70.8% Lymphocytes % 16.9% Monocytes % 6.4% Eosinophils % 5.3% Basophils % 0.3% Nucleated Red Blood Cells % 0.0/100WBC Neutrophils # 4.210^3/ul Lymphocytes # 1.010^3/ul Monocytes # 0.410^3/ul Eosinophils # 0.310^3/ul Basophils # 0.010^3/ul Nucleated Red Blood Cells # 0.010^3/ul Sodium Level 137mmol/L Potassium Level 3.8mmol/L Chloride Level 91mmol/L Carbon Dioxide Level 27mmol/L Anion Gap 23 Blood Urea Nitrogen 23mg/dl Creatinine 0.88mg/dl Glucose Level 456mg/dl Calcium Level 9.8mg/dl Magnesium Level 1.9mg/dl Troponin I 0.015ng/ml Test 09/13/16 06:12 09/13/16 08:54 Urine Opiates Screen Negative Urine Barbiturates Negative Urine Amphetamines Screen Negative Urine Benzodiazepines Screen Negative Urine Cocaine Screen Negative Urine Cannabinoids Negative Urine Color YELLOW Urine Clarity CLEAR Urine pH 5.0 Urine Specific [place] 1.031 Urine Ketones TRACEmg/dL Urine Nitrite NEGATIVEmg/dL Urine Bilirubin NEGATIVEmg/dL Urine Urobilinogen NEGATIVEmg/dL Urine Leukocyte Esterase TRACELeu/ul Urine Microscopic RBC 1/HPF Urine Microscopic WBC 5/HPF Urine Hemoglobin NEGATIVEmg/dL Urine Glucose 3+mg/dL Urine Total Protein NEGATIVEmg/dl Current Medications Medications (Trade) Dose Ordered Sig/[place] Route PRN Reason Start Time Stop Time Status Last Admin Dose Admin Sodium Chloride 1,000 ml @ 1,000 mls/hr Q1H STAT IV 09/13/16 03:08 09/13/16 04:07 DC 09/13/16 03:36 Lactated Ringer's (Lr) 1,000 ml @ 1,000 mls/hr Q1H STAT IV 09/13/16 03:08 09/13/16 04:07 DC 09/13/16 03:37 Insulin Human Regular (Novolin-R) 8 unit ONCE ONCE SC 09/13/16 05:00 09/13/16 05:01 DC 09/13/16 05:05 Procedures/MDM EKG: Rate/Rhythm: V paced at 60 bpm QRS, ST, T-waves: No changes consistent w/ acute ischemia Impression: No evidence of ischemia or arrhythmia Chest x-ray shows no acute abnormalities Labs: CBC: no anemia or evidence of infection BMP: Elevated BUN, hyperglycemia Troponin within normal limits UA: pending Urine drug screen pending MDM Patient is presenting for medication noncompliance and hyperglycemia. Her vitals are stable and she is afebrile. 2 L of IV fluids were given and 8 units of insulin was given subQ. There is no evidence of diabetic ketoacidosis or HHS. Patient does not need acute inpatient admission, however she does likely need a psychiatric evaluation as she is significantly depressed per her family and unable to care for herself. We do not have case management at this time of night, however she will need a case management consult in the morning and likely a tele-psychiatry consult. I believe the patient would benefit from a geriatric psychiatry admission. [facility] PAtient signed out to Dr. Whittington. Departure Diagnosis: Primary Impression: Hyperglycemia Additional Impressions: Noncompliance with medication regimen Depression Qualified Code: F32.9 - Depression, unspecified depression type Gravely disabled Condition: BLANKA Estevez MD Sep 13, 2016 05:43
[2016-09-13 07:42] LABS: BARBITURATES Negative (NEGATIVE); BENZODIAZEPINES Negative (NEGATIVE); CANNABINOIDS Negative (NEGATIVE); COCAINE Negative (NEGATIVE); OPIATES Negative (NEGATIVE)
[2016-09-13 09:30] LABS: ADD UMIC YES; UR ASCORBIC ACID NEGATIVE (NEGATIVE); UR BILIRUBIN (Dip) NEGATIVE (NEGATIVE); UR BLOOD (Dip) NEGATIVE (NEGATIVE); UR CLARITY CLEAR (CLEAR); UR COLOR YELLOW (YELLOW); UR GLUCOSE (Dip) 3+ mg/dL (NEGATIVE); UR KETONES (Dip) TRACE mg/dL (NEGATIVE); UR LEUKOCYTE ESTERASE (Dip) TRACE Leu/ul (NEGATIVE); UR NITRITE (Dip) NEGATIVE (NEGATIVE); UR RBC 1 /HPF (0-5); UR SPECIFIC GRAVITY (Dip) 1.031 (1.003-1.030); UR TOTAL PROTEIN (Dip) NEGATIVE (NEGATIVE); UR UROBILINOGEN (Dip) NEGATIVE (NEGATIVE)
--- NOTE | 2016-09-13 09:56 | QN ---
Documentation Comment The patient has been accepted to [facility] into their general psychiatric unit accepted by Dr. Call for grave disability. The family was informed over the phone. The patient is stable for transfer and the benefits outweigh the risks. The patient is medically cleared for general psychiatric admission. LAWSON NEAL MD Sep 13, 2016 09:56
[2016-09-13 10:23] VITALS: BP 133/73; PULSE 61; RESP 18
== END 2016-09-13 11:16 | disposition short-term general hospital (02) ==
LOC: E/R 02:13
DX: E11.65 Type 2 diabetes mellitus with hyperglycemia (principal); F32.9 Major depressive disorder, single episode, unspecified; F79 Unspecified intellectual disabilities; I10 Essential (primary) hypertension; E03.9 Hypothyroidism, unspecified; F17.210 Nicotine dependence, cigarettes, uncomplicated; Z79.4 Long term (current) use of insulin; Z91.19 Patient's noncompliance with other medical treatment and regimen; Z95.0 Presence of cardiac pacemaker; Z79.84 Long term (current) use of oral hypoglycemic drugs
CPT/HCPCS: 36415; 71010; 80048; 80307; 81001; 82962; 83735; 84484; 85025; 96372; 99285; J1815; J7030; J7120; 93005

== ENCOUNTER → 2017-03-02 | Day surgery (SDC) | END | disposition home or self-care (01) ==

== ENCOUNTER 2017-05-14 10:13 | Inpatient (IN) | END 2017-05-21 15:47 | DRG 637 ==

== ENCOUNTER 2017-08-13 13:07 | Emergency (ER) | END 2017-08-13 19:31 | disposition home or self-care (01) ==

== ENCOUNTER 2017-08-14 11:12 | Emergency (ER) | END 2017-08-14 16:14 | disposition home or self-care (01) ==

== ENCOUNTER 2017-08-21 19:59 | Emergency (ER) | END 2017-08-21 23:23 | disposition home or self-care (01) ==

== ENCOUNTER 2017-08-23 23:49 | Inpatient (IN) | END 2017-09-04 14:00 | DRG 640 ==

== ENCOUNTER 2018-01-12 08:32 | Inpatient (IN) | END 2018-01-27 18:30 | DRG 92 ==

== ENCOUNTER 2018-03-07 20:13 | Emergency (ER) | payer BC, MEDICAID ==
[~2018-03-07] VITALS: Wt 75.0 kg
[~2018-03-07 20:13] MED LIST changes: +ARIP20TA5 PO; -BENZ2TAB37 PO; -CARI350T29 PO; -CLON-379 PO; +CLON0.2T5 PO; +CLON1TAB13 PO; -CLON1TAB3 PO; +ENAL20TA PO; -HYDR-3010 PO; +HYDR-3029 PO; +HYDR-3672 PO; +LANT3I SC; -LEVO150T67 PO; +LEVO150T7 PO; +METO-429 PO; -TOLT4CAP13 PO; +TRAZ-150 PO; +TROL141. TP
--- NOTE | 2018-03-07 21:10 | ERD ---
ER Documentation Chief Complaint Chief Complaint aida larios from [facility] for right forehead and hand hematoma HPI 72-year-old woman [facility] mechanical [facility]. She fell backward and landed mostly on her right side sustaining injury to the right hand and right side of her face. She was able to ambulate at the scene and was transported here otherwise without complications. Patient does have dementia but denies recent fevers or chills, no blurry vision, no chest pain or shortness of breath. ROS All systems reviewed and are negative except as per history of present illness. Medications Home Meds Active Scripts Trolamine Salicylate/Aloe Vera (Aspercreme 10% Cream) 141.7 Gm Cream.gm., 1 APPLIC TP Q6, #141 GM Prov:ABDIRIZAK GUTIERREZ 08/21/17 Reported Medications Clonidine Hcl* (Clonidine Hcl*) 0.2 Mg Tablet, 0.2 MG PO Q8, TAB 01/12/18 Hydralazine Hcl* (Apresoline*) 50 Mg Tab, 50 MG PO Q8, #90 TAB 01/12/18 Carbamazepine* (Carbamazepine* XR) 200 Mg Tab.er.12h, 200 MG PO QAM, #60 TAB.SA 01/12/18 Aripiprazole* (Abilify*) 20 Mg Tablet, 20 MG PO DAILY, #30 TAB 01/12/18 Insulin Glargine* (Lantus*) 100 Unit/Ml Soln, 12-14 UNITS SC BID, #1 VIAL 09/13/16 Trazodone Hcl* (Desyrel*) 100 Mg Tab, 100 MG PO BID, #60 TAB 09/13/16 Metoprolol Tartrate* (Lopressor*) 50 Mg Tab, 50 MG PO BID, #60 TAB 09/13/16 Enalapril Maleate* (Enalapril Maleate*) 20 Mg Tablet, 20 MG PO DAILY, TAB 09/13/16 Venlafaxine Hcl* (Effexor XR*) 75 Mg Tab.er.24, 75 MG PO DAILY, TAB.SA 03/28/16 Donepezil* (Aricept*) 5 Mg Tablet, 5 MG PO DAILY, TAB 03/28/16 Insulin Aspart* (Novolog Insulin Pen*) 100 Unit/Ml Soln, 4 UNITS SC AC MEALS, EA 03/28/16 Insulin Detemir (Levemir) 100 Unit/1 Ml Vial, 12 UNIT SC QAM, VIAL 03/28/16 Hydroxyzine Hcl* (Hydroxyzine Hcl*) 10 Mg Tablet, 10-20 MG PO Q4 PRN for ITCHING, #30 TAB 03/28/16 Glyburide* (Glyburide*) 5 Mg Tablet, 5 MG PO BID, #60 TAB 03/28/16 Diltiazem Hcl* (Diltiazem XT) 120 Mg Capsule.sa, 120 MG PO DAILY, #30 CAP 03/28/16 Levothyroxine Sodium* (Levothyroxine Sodium*) 150 Mcg Tablet, 150 MCG PO AC BREAKFAST, TAB 04/27/14 Clonazepam* (Clonazepam*) 1 Mg Tablet, 1 MG PO QHS, TAB 04/27/14 Carbamazepine* (Carbamazepine* XR) 200 Mg Tab.er.12h, 400 MG PO QPM, TAB.SA 04/27/14 Allergies Allergies: Coded Allergies: No Known Allergies (Unverified Allergy, Mild, 01/12/18) PMhx/Soc Chronic recurrent encephalopathy, UTIs, ventral hernia, paroxysmal atrial fibrillation, hypertension, diabetes mellitus, dementia, bipolar disorder History of Surgery: Yes (Appendectomy, ) Anesthesia Reaction: No Hx Neurological Disorder: No Hx Respiratory Disorders: Yes (COPD, asthma) Hx Cardiac Disorders: Yes (CHF, pacemaker) Hx Psychiatric Problems: Yes (bipolar, dementia) Hx Miscellaneous Medical Probl: Yes (DEMANTIA, HTN , DM , BIPOLAR DISOEDER, S/P GASTRIC BYPASS .) Hx Alcohol Use: No Hx Substance Use: No Hx Tobacco Use: No Smoking Status: Never smoker FmHx Family History: No diabetes Physical Exam Vitals Vital Signs Date Temp Pulse Resp B/P (MAP) Pulse Ox O2 O2 Flow FiO2 Time Delivery Rate 03/07/18 98.2 69 19 139/81 100 20:25 (100) Physical Exam Const: No acute distress, afebrile HEENT: No cervical spine tenderness or step-off deformity, pupils equal round reactive to light, extraocular movements intact without pain, soft tissue contusion to the right side of the face Neck: Full range of motion. No meningismus. Resp: Clear to auscultation bilaterally Cardio: Regular rate and rhythm, no murmurs Abd: Soft, non tender, non distended. Normal bowel sounds Skin: No petechiae or rashes. She has soft tissue contusion and ecchymosis to the dorsal aspect of the right hand on the right side of the face Back: No midline or flank tenderness. No hematomas contusions or bony deformity or tenderness noticed Ext: No cyanosis, or edema Neur: Awake and alert x1, no focal deficits or facial asymmetry, moving all extremities Psych: Normal Mood and Affect Results 24 hrs Current Medications Medications Dose Sig/[place] Start Time Status Last (Trade) Ordered Route PRN Stop Time Admin Dose Reason Admin Clonidine 0.2 mg ONCE ONCE 03/07/18 DC 03/07/18 (Catapres) PO 21:30 22:00 03/07/18 21:31 Ketorolac 30 mg ONCE STAT 03/07/18 DC 03/07/18 Tromethamine IM 21:24 22:06 (Toradol) 03/07/18 21:25 Procedures/MDM I administered Toradol 30 mg IM x1 for complaints of pain and clonidine 0.2 mg p.o. for hypertension. Chest X-ray 1V Interpreted by me: Soft Tissue: No acute abnormalities Bones: No acute abnormalities Mediastinum/Cardiac Silhouette/Lungs: No acute abnormalities CT scan of the head was negative for acute bleed mass or shift CT scan of the facial bones negative for fracture X-ray right hand 3V interpreted by me: Scaphoid: Normal Bones: No fracture Joints: No dislocation Foreign body: None X-ray Pelvis 1V Interpreted by me: Bones: No fracture Joints: No dislocation Foreign body: None I spoke to the patient's on-call physician Dr. Morton regarding this patient and her daughters' wish to have her transferred to another [facility]. We discussed the case and agreed there is no indication at this time to admit the patient, he stated he would speak to family members regarding the [facility] Ms. Fuentes [facility] in and arrange for possible transfer if needed Differential diagnoses considered, included but not limited to acute coronary syndrome, pulmonary embolism, aortic dissection, abdominal aortic aneurysm, sepsis, stroke, meningitis, encephalitis, pneumonia, appendicitis, cholecystitis, bowel obstruction, pyelonephritis, nephrolithiasis, cystitis, as well as metabolic, hematologic, and electrolyte abnormalities. As well as abscess, cellulitis, fractures, and dislocations. Patient feels much better at this time, and vital signs are normal, symptoms have improved. I did give strict instructions to return to the ED if symptoms continue or worsen, patient will otherwise follow-up with primary care physician. Patient understood instructions and agreed to plan. Disclaimer: Inadvertent spelling and grammatical errors are likely due to EHR/dictation software use and do not reflect on the overall quality of patient care. Also, please note that the electronic time recorded on this note does not necessarily reflect the actual time of the patient encounter. Departure Diagnosis: Primary Impression: Dementia Dementia type: unspecified type Dementia behavioral disturbance: without behavioral disturbance Qualified Codes: F03.90 - Unspecified dementia without behavioral disturbance Additional Impressions: Hypertension Hypertension type: essential hypertension Qualified Codes: I10 - Essential (primary) hypertension Hand sprain Encounter type: initial encounter Laterality: right Qualified Codes: S63.91XA - Sprain of unspecified part of right wrist and hand, initial encounter Facial contusion Encounter type: initial encounter Qualified Codes: S00.83XA - Contusion of other part of head, initial encounter Condition: Good [facility] SIMS MD Mar 07, 2018 21:10
[2018-03-07] MEDS ORDERED: KETOROLAC 30 MG INJ IM STA (21:24)
[2018-03-07] MEDS ORDERED: hydrALAzine 20 MG INJ IV ONE (23:00)
[2018-03-07 23:15] VITALS: BP 153/93; PULSE 104; RESP 18
== END 2018-03-07 23:20 | disposition home or self-care (01) ==
LOC: E/R 20:13
DX: S63.91XA Sprain of unspecified part of right wrist and hand, initial encounter (principal); S00.83XA Contusion of other part of head, initial encounter; F03.90 Unspecified dementia, unspecified severity, without behavioral disturbance, psychotic disturbance, mood disturbance, and anxiety; I11.0 Hypertensive heart disease with heart failure; I50.9 Heart failure, unspecified; E11.9 Type 2 diabetes mellitus without complications; J44.9 Chronic obstructive pulmonary disease, unspecified; J45.909 Unspecified asthma, uncomplicated; W18.39XA Other fall on same level, initial encounter; Y92.9 Unspecified place or not applicable; Z95.0 Presence of cardiac pacemaker; Z79.4 Long term (current) use of insulin
CPT/HCPCS: 70450; 70486; 71045; 72170; 73130; 96372; 96374; 99285; J0360; J1885